=== PATIENT | male | born 1995 | race Caucasian/White ===

== ENCOUNTER 2019-07-07 21:09 | Emergency (ER) | payer MEDICAID ==
[~2019-07-07] VITALS: Ht 172.7 cm; Wt 63.5 kg
[2019-07-07 21:30] VITALS: Ht 172.7 cm; Wt 63.5 kg
[2019-07-07 22:44] VITALS: BP 122/76
== END 2019-07-07 22:44 | disposition home or self-care (01) ==
LOC: ED 21:09
DX: J02.9 Acute pharyngitis, unspecified (principal); Z90.89 Acquired absence of other organs
CPT/HCPCS: J1885